=== PATIENT | male | born 1990 | race African-American/Black ===

== ENCOUNTER 2017-01-25 01:04 | Emergency (ER) | payer OTHER ==
[~2017-01-25] VITALS: Ht 167.6 cm; Wt 106.9 kg
[2017-01-25 01:57] LABS: HEMATOCRIT 45.7 % (38.0-50.0); MCH 26.4 PG (29.0-34.0); MCHC 32.6 G/DL (30.0-36.0); PLATELET COUNT 198 K/uL (156-360); RBC DIS.WIDTH-CV 13.5 % (11.8-14.6); RBC DIS.WIDTH-SD 39.4 % (39-53); RED BLOOD COUNT 5.64 M/uL (4.00-5.50); WHITE BLOOD COUNT 8.9 K/uL (4.1-10.2)
[2017-01-25 02:09] LABS: CHLORIDE 108 mEq/L (99-109); POTASSIUM 3.8 mEq/L (3.7-5.4); SODIUM 140 mEq/L (136-147)
[2017-01-25 02:10] LABS: GLUCOSE 118 mg/dL (70-99)
[2017-01-25 02:12] LABS: ANION GAP 9 MEQ/L (2-14)
[2017-01-25 02:14] LABS: GFR ESTIMATE (CALCULATED) > 59 mL/min/
[2017-01-25 02:15] LABS: UREA NITROGEN (BUN) 13 mg/dL (9-23)
[2017-01-25 02:46] LABS: ADD MIUA? YES; BILIRUBIN NEGATIVE; BLOOD NEGATIVE; COLOR YELLOW ((YELLOW)); GLUCOSE (STRIP) NEGATIVE; KETONES NEGATIVE; LEUKOCYTES NEGATIVE; NITRITE NEGATIVE; PROTEIN (STRIP) 30; SPECIFIC GRAVITY 1.019 (1.000-1.030); UROBILINOGEN 0.2 MG/DL (0.2-1.0)
[2017-01-25] MEDS ORDERED: FLOMAX0.4 MG PO (02:56)
[2017-01-25] MEDS ORDERED: ZOFRAN ODT4 MG PO (02:56)
[2017-01-25] MEDS ORDERED: PERCOCET 5/31 TABLET PO (02:56)
[2017-01-25 03:07] LABS: BACTERIA NONE SEEN /HPF; EPITHELIAL CELLS NONE SEEN /HPF; MUCUS 2+ /LPF; RED BLOOD CELLS 30-40 /HPF (0-5); UCUL ADDED? NO; WHITE BLOOD CELLS 0-5 /HPF (0-5)
[2017-01-25 03:09] VITALS: BP 133/75
== END 2017-01-25 03:09 | disposition home or self-care (01) ==
LOC: EME 01:04 → EXP 01:04
DX: N20.1 Calculus of ureter (principal); Z87.442 Personal history of urinary calculi
CPT/HCPCS: 74176; 80048; 81003; 85027; 99281; 99284; J1885

== ENCOUNTER 2017-01-27 21:50 | Observation (INO) | payer OTHER ==
[~2017-01-27] VITALS: Ht 167.6 cm; Wt 109.7 kg
[~2017-01-27 21:50] MED LIST: FLOMAX0.4 MG PO; PERCOCET 5/31 TABLET PO; ZOFRAN ODT4 MG PO
[2017-01-27 22:21] LABS: ADD MIUA? YES; BILIRUBIN NEGATIVE; BLOOD SMALL; COLOR YELLOW ((YELLOW)); GLUCOSE (STRIP) NEGATIVE; KETONES NEGATIVE; LEUKOCYTES NEGATIVE; NITRITE NEGATIVE; PROTEIN (STRIP) NEGATIVE; SPECIFIC GRAVITY 1.016 (1.000-1.030); UROBILINOGEN 0.2 MG/DL (0.2-1.0)
[2017-01-27 22:32] LABS: BACTERIA NONE SEEN /HPF; EPITHELIAL CELLS NONE SEEN /HPF; MUCUS TRACE /LPF; RED BLOOD CELLS NONE SEEN /HPF (0-5); UCUL ADDED? NO; UNCLASSIFIED CRYSTALS 3+ /HPF; WHITE BLOOD CELLS 0-5 /HPF (0-5)
[2017-01-27 22:38] LABS: HEMATOCRIT 45.4 % (38.0-50.0); MCH 26.7 PG (29.0-34.0); MCHC 32.6 G/DL (30.0-36.0); MCV 81.8 FL (86-99); RBC DIS.WIDTH-CV 13.3 % (11.8-14.6); RBC DIS.WIDTH-SD 39.6 % (39-53); RED BLOOD COUNT 5.55 M/uL (4.00-5.50); WHITE BLOOD COUNT 8.1 K/uL (4.1-10.2)
[2017-01-27 22:48] LABS: MEAN PLAT.VOLUME 10.9 uM^3 (9.0-12.4); PLATELET COUNT 197 K/uL (156-360)
[2017-01-27 22:50] LABS: CHLORIDE 104 mEq/L (99-109); POTASSIUM 3.7 mEq/L (3.7-5.4); SODIUM 136 mEq/L (136-147)
[2017-01-27 22:52] LABS: GLUCOSE 114 mg/dL (70-99)
[2017-01-27 22:54] LABS: ANION GAP 9 MEQ/L (2-14); TOTAL BILIRUBIN 0.4 mg/dL (0.0-1.0)
[2017-01-27 22:56] LABS: ALKALINE PHOSPHATASE 83 IU/L (3-129); GFR ESTIMATE (CALCULATED) > 59 mL/min/
[2017-01-27 22:57] LABS: UREA NITROGEN (BUN) 11 mg/dL (9-23)
[2017-01-27] MEDS ORDERED: PERCOCET (23:15)
[2017-01-27] MEDS ORDERED: FLOMAX0.4 MG PO (23:15)
[2017-01-28] MEDS ORDERED: PERCOCET 5/31 TABLET PO ×2 (00:06→11:54)
[2017-01-28] MEDS ORDERED: KLOR-CON 1010 ME1 PO (00:07)
[2017-01-28] MEDS ORDERED: HYDROCHLOROTHIA25 MG PO (00:07)
[2017-01-28 02:53] VITALS: BP 138/80
[2017-01-28 07:17] LABS: HEMATOCRIT 43.3 % (38.0-50.0); MCH 26.4 PG (29.0-34.0); MCHC 32.1 G/DL (30.0-36.0); MCV 82.3 FL (86-99); MEAN PLAT.VOLUME 11.1 uM^3 (9.0-12.4); PLATELET COUNT 211 K/uL (156-360); RBC DIS.WIDTH-CV 13.3 % (11.8-14.6); RBC DIS.WIDTH-SD 39.9 % (39-53); RED BLOOD COUNT 5.26 M/uL (4.00-5.50); WHITE BLOOD COUNT 8.3 K/uL (4.1-10.2)
[2017-01-28 07:49] LABS: ALKALINE PHOSPHATASE 76 IU/L (3-129); ANION GAP 10 MEQ/L (2-14); CHLORIDE 102 MEQ/L (99-109); GFR ESTIMATE (CALCULATED) > 59 mL/min/; GLUCOSE 100 mg/dL (70-99); POTASSIUM 4.3 MEQ/L (3.7-5.4); SAMPLE HEMOLYSIS CHECK 0; SAMPLE ICTERIC CHECK 0; SAMPLE LIPEMIA CHECK 0; SODIUM 137 MEQ/L (136-147); TOTAL BILIRUBIN 0.5 MG/DL (0.0-1.0); UREA NITROGEN (BUN) 10 mg/dL (9-23)
[2017-01-28 08:20] VITALS: BP 140/84
[2017-01-28 11:22] VITALS: BP 135/74
== END 2017-01-28 12:42 | disposition home or self-care (01) ==
LOC: EME 21:50 → RME 22:50 → EME 22:50 → EDOF 01-28 01:17 → 5WEST 01-28 02:47
PROVIDERS: Internal Medicine
DX: N13.2 Hydronephrosis with renal and ureteral calculous obstruction (principal); N17.9 Acute kidney failure, unspecified
CPT/HCPCS: 74020; 80053; 81003; 85027; 99281; 99285; G0378; J1885; J2270; J2405; J7030; S0028

== ENCOUNTER 2017-03-26 18:19 | Emergency (ER) | payer OTHER ==
[~2017-03-26] VITALS: Ht 167.6 cm; Wt 104.6 kg
[~2017-03-26 18:19] MED LIST changes: +HYDROCHLOROTHIA25 MG PO; +KLOR-CON 1010 ME1 PO; +PERCOCET
[2017-03-26 18:43] LABS: ADD MIUA? YES; BILIRUBIN NEGATIVE; BLOOD SMALL; COLOR YELLOW ((YELLOW)); GLUCOSE (STRIP) NEGATIVE; KETONES 5; LEUKOCYTES NEGATIVE; NITRITE NEGATIVE; PROTEIN (STRIP) 30; SPECIFIC GRAVITY 1.024 (1.000-1.030); UROBILINOGEN 0.2 MG/DL (0.2-1.0)
[2017-03-26 19:00] LABS: BACTERIA NONE SEEN /HPF; EPITHELIAL CELLS NONE SEEN /HPF; GRANULAR CASTS 0-5 /LPF; MUCUS TRACE /LPF; RED BLOOD CELLS 15-20 /HPF (0-5); UCUL ADDED? NO; WHITE BLOOD CELLS 0-5 /HPF (0-5)
[2017-03-26 19:19] LABS: HEMATOCRIT 47.9 % (38.0-50.0); MCH 26.5 PG (29.0-34.0); MCHC 33.2 G/DL (30.0-36.0); MCV 79.8 FL (86-99); RBC DIS.WIDTH-CV 13.2 % (11.8-14.6); RBC DIS.WIDTH-SD 38.4 % (39-53); WHITE BLOOD COUNT 8.2 K/uL (4.1-10.2)
[2017-03-26 19:29] LABS: CHLORIDE 98 mEq/L (99-109); POTASSIUM 3.5 mEq/L (3.7-5.4); SODIUM 134 mEq/L (136-147)
[2017-03-26 19:31] LABS: GLUCOSE 118 mg/dL (70-99)
[2017-03-26 19:32] LABS: ANION GAP 12 MEQ/L (2-14)
[2017-03-26 19:35] LABS: GFR ESTIMATE (CALCULATED) 55 mL/min/
[2017-03-26 19:36] LABS: UREA NITROGEN (BUN) 16 mg/dL (9-23)
[2017-03-26 20:27] LABS: PLATELET CLUMPS PRESENT - PLATELET COUNT APPEARS ADQ.; PLATELET COUNT UNABLE TO REPORT K/uL (156-360)
[2017-03-26 22:04] VITALS: BP 133/91
[2017-03-27] MEDS ORDERED: ZOFRAN ODT8 MG PO (13:45)
[2017-03-27] MEDS ORDERED: FLOMAX0.4 MG PO (13:45)
[2017-03-27] MEDS ORDERED: NORCO 5/3251 TABLET PO (13:45)
== END 2017-03-26 22:03 | disposition home or self-care (01) ==
LOC: EME 18:19
DX: N13.2 Hydronephrosis with renal and ureteral calculous obstruction (principal); N17.9 Acute kidney failure, unspecified; Z87.442 Personal history of urinary calculi
CPT/HCPCS: 74176; 80048; 81003; 85027; 99281; 99284; J7030

== ENCOUNTER 2017-03-27 10:01 | Emergency (ER) | payer OTHER ==
[~2017-03-27] VITALS: Ht 167.6 cm; Wt 104.8 kg
[2017-03-27 12:56] LABS: ADD MIUA? YES; BILIRUBIN NEGATIVE; BLOOD SMALL; COLOR YELLOW ((YELLOW)); GLUCOSE (STRIP) NEGATIVE; KETONES 20; LEUKOCYTES NEGATIVE; NITRITE NEGATIVE; PROTEIN (STRIP) 30; UROBILINOGEN 0.2 MG/DL (0.2-1.0)
[2017-03-27 13:07] LABS: BACTERIA NONE SEEN /HPF; CALCIUM OXALATE CRYSTALS 2+ /HPF; EPITHELIAL CELLS RARE /HPF; MUCUS TRACE /LPF; WHITE BLOOD CELLS 0-5 /HPF (0-5)
[2017-03-27] MEDS ORDERED: NORCO 5/3251 TABLET PO (13:45)
[2017-03-27] MEDS ORDERED: ZOFRAN ODT8 MG PO (13:45)
[2017-03-27] MEDS ORDERED: FLOMAX0.4 MG PO (13:45)
[2017-03-27 13:53] VITALS: BP 141/75
== END 2017-03-27 13:55 | disposition home or self-care (01) ==
LOC: EME 10:01
PROVIDERS: Physician Assistant
DX: N20.0 Calculus of kidney (principal); Z87.442 Personal history of urinary calculi
CPT/HCPCS: 81003; 99281; 99284; J1885

== ENCOUNTER 2017-04-03 09:35 | Day surgery (SDC) | payer OTHER ==
[~2017-04-03] VITALS: Ht 167.6 cm; Wt 104.7 kg
[~2017-04-03 09:35] MED LIST changes: +HYDROCODON-ACE1 EAC7 PO; +NORCO 5/3251 TABLET PO; +ZOFRAN ODT8 MG PO
[2017-04-03 10:00] VITALS: BP 133/64
[2017-04-03 12:11] VITALS: BP 141/90
[2017-04-03 13:11] VITALS: BP 148/76
[2017-04-03 14:51] VITALS: BP 123/71
== END 2017-04-03 15:17 | disposition home or self-care (01) ==
LOC: SDC 09:35
PROC: BT1D1ZZ Fluoroscopy of Right Kidney, Ureter and Bladder using Low Osmolar Contrast (ICD-10-PCS; principal; 2017-04-03)
PROC: 0T768DZ Dilation of Right Ureter with Intraluminal Device, Via Natural or Artificial Opening Endoscopic (ICD-10-PCS; principal; 2017-04-03)
PROC: 0TF68ZZ Fragmentation in Right Ureter, Via Natural or Artificial Opening Endoscopic (ICD-10-PCS; principal; 2017-04-03)
PROC: 0TC68ZZ Extirpation of Matter from Right Ureter, Via Natural or Artificial Opening Endoscopic (ICD-10-PCS; principal; 2017-04-03)
DX: N20.1 Calculus of ureter (principal); Z87.442 Personal history of urinary calculi; I10 Essential (primary) hypertension; Z82.49 Family history of ischemic heart disease and other diseases of the circulatory system; Z80.9 Family history of malignant neoplasm, unspecified
CPT/HCPCS: C1876; J1100; J1580; J1885; J2250; J2405; J3010